=== PATIENT | male | born 1970 | race Caucasian/White ===

== ENCOUNTER 2020-01-23 17:08 | Emergency (ER) | payer OTHER ==
[~2020-01-23] VITALS: Ht 170.2 cm; Wt 98.0 kg
--- NOTE | 2020-01-23 18:43 | PHYS DOC ---
General Adult EDM: Chief Complaint: HYPERGLYCEMIA HPI: HPI: Patient is a 49 year old male who presents with 2 days of nausea, shakiness, cough, shortness of air. He states that all week his blood sugars have been running in the 200s. He states that he takes metformin at 1000mg twice a day. Patient denies chest pain, vomiting, diarrhea, dizziness, headache, excessive thirst, frequent urination, abdominal pain, vision changes, numbness or tingling. He states " I just feel like I have the flu". (CRUZ HAWK APRN) Review of Systems: Review of Systems: Constitutional: Denies fever or chills. + Shaky [] Eyes: Denies change in visual acuity. [] HENT: Denies nasal congestion or sore throat. [] Respiratory: +cough or +shortness of breath. [] Cardiovascular: Denies chest pain or edema. [] GI: Denies abdominal pain. + nausea, denies vomiting, bloody stools or diarrhea. [] : Denies dysuria. [] Musculoskeletal: Denies back pain or joint pain. +Generalized fatigue. [] Integument: Denies rash. [] Neurologic: Denies headache, focal weakness or sensory changes. [] Endocrine: Denies polyuria or polydipsia. [] Lymphatic: Denies swollen glands. [] Psychiatric: Denies depression or anxiety. [] (CRUZ HAWK APRN) Heart Score: Risk Factors: Risk Factors: DM, Current or recent (<one month) smoker, HTN, HLP, family history of CAD, obesity. Risk Scores: Score 0 - 3: 2.5% MACE over next 6 weeks - Discharge Home Score 4 - 6: 20.3% MACE over next 6 weeks - Admit for Clinical Observation Score 7 - 10: 72.7% MACE over next 6 weeks - Early Invasive Strategies (CRUZ HAWK APRN) Current Medications: Current Medications Medications (Trade) Dose Ordered Sig/Selam Start Time Stop Time Status Last Admin Dose Admin Sodium Chloride 1,000 ml @ 1,000 mls/hr Q1H 01/23/20 18:36 01/23/20 19:35 UNV (CRUZ HAWK APRN) Physical Exam: PE: Constitutional: Well developed, well nourished, no acute distress, non-toxic appearance. [] HENT: Normocephalic, atraumatic, bilateral external ears normal, oropharynx moist, no oral exudates, nose normal. [] Eyes: PERRLA, EOMI, conjunctiva normal, no discharge. [] Neck: Normal range of motion, no tenderness, supple, no stridor. [] Cardiovascular:Heart rate regular rhythm, no murmur [] Lungs & Thorax: Bilateral breath sounds clear to auscultation [] Abdomen: Bowel sounds normal, soft, no tenderness, no masses, no pulsatile masses. [] Skin: Warm, dry, no erythema, no rash. [] Back: No tenderness, no CVA tenderness. [] Extremities: No tenderness, no cyanosis, no clubbing, ROM intact, no edema. [] Neurologic: Alert and oriented X 3, normal motor function, normal sensory function, no focal deficits noted. [] Psychologic: Affect normal, judgement normal, mood normal. Normal physical exam [] (CRUZ HAWK APRN) Current Patient Data: Labs: Laboratory Tests Test 01/23/20 18:22 Glucose (Fingerstick) 244 mg/dL (70-99) H (CRUZ HAWK APRN) EKG: EK and read by Dr. Jessica is sinus rhythm and no STEMI [] (CRUZ HAWK APRN) Radiology/Procedures: Radiology/Procedures: [] Impression: [facility] [address] [place] [address] IMAGING REPORT Signed PATIENT: VALERIE SUGGS ACCOUNT: [id number] : 1970 LOCATION: ER AGE: 49 SEX: M EXAM STATUS: REG ER ORD. PHYSICIAN: CRUZ HAWK APRN REASON: soa, cough PROCEDURE: PORTABLE CHEST 1V Exam: Chest one view INDICATION: Short of air, cough TECHNIQUE: Frontal view of the chest Comparisons: None FINDINGS: The cardiomediastinal silhouette and pulmonary vessels are within normal limits. Streaky opacities at the perihilar lungs bilaterally. No pleural effusion. IMPRESSION: Streaky bilateral perihilar opacities, may represent atypical infectious process. Correlate for Covid. Electronically signed by: Maribell Brandt MD (01/23/2020 7:32 PM) [id number] DICTATED and SIGNED BY: MARIBELL BRANDT MD DATE: 01/23/201931 (CRUZ HAWK APRN) Course & Med Decision Making: Course & Med Decision Making Pertinent Labs and Imaging studies reviewed. (See chart for details) COVID-19 CRITERIA: The patient was evaluated during the global COVID-19 pandemic, and that diagnosis was suspected/considered upon their initial presentation. Their evaluation, treatment and testing was consistent with current guidelines for patients who present with complaints or symptoms that may be related to COVID-19. See HPI. Alert and oriented x4. Ambulatory steady gait. No extremity edema. Speaks in full clear sentences. Lungs are clear to all lobes. Afebrile. Abdomen is soft and nontender. Skin pink warm and dry. Patient states a week ago Friday he had a exposure to somebody with COVID. [] (CRUZ HAWK APRN) Dragon Disclaimer: Dragon Disclaimer: This electronic medical record was generated, in whole or in part, using a voice recognition dictation system. (CRUZ HAWK APRN) COVID-19 Patient Risks: Age 65 or older: No Sign of co-morbidity: Yes Exp to person + for COVID: Yes Exp to PUI: No Travel from affected area: No Lower respiratory symptoms: Yes Fever: No Other: Yes (nausea) (CRUZ HAWK APRN) PPE Use: Full PPE with N95 mask or PAPR: Yes (CRUZ HAWK APRN) Departure Departure Impression: Primary Impression: Person under investigation for COVID-19 Additional Impression: Pneumonia Qualified Codes: J18.9 - Pneumonia, unspecified organism Disposition: 01 DC HOME SELF CARE/HOMELESS Condition: STABLE Referrals: AMALIA CAMPBELL MD (PCP) Patient Instructions: Pneumonia, Adult Additional Instructions: Follow-up with primary care provider if needed. Take medication as prescribed and with food. Take Tylenol or ibuprofen for your pain and fever. Drink plenty of fluids. Rest as much as possible. Scripts Azithromycin (AZITHROMYCIN TABLET) 250 Mg Tablet 1 PKG PO UD for 5 Days, #6 TAB 0 Refills 2 the first day followed by 1 for days 2-5 Prov: CRUZ HAWK FORESTRY WORKER 01/23/20 Ondansetron (ONDANSETRON ODT) 4 Mg Tab.rapdis 1 TAB PO PRN Q6-8HRS, #16 TAB Prov: CRUZ HAWK 01/23/20 Methylprednisolone (MEDROL) 4 Mg Tab.ds.pk 1 PKG PO UD, #1 PKG Prov: JAMEYCRUZ KEENAN Ana 01/23/20 Attending Signature Attending Signature I have reviewed the PA/BUSINESS BANK[employer] RELATIONSHIP MANAGER's note and plan of care. I was available for consultation as needed during the patient's visit in the emergency department. I agree with the clinical impression, plan, and disposition. (VALERIE JESSICA DO) CARINEKASSYCRUZDAPHNIE Perez APRN Jan 23, 2020 18:43 VALERIE JESSICA DO Jan 26, 2020 06:56
[2020-01-23 19:20] LABS: BASO # 0.1 x10^3/uL (0.0-0.2); BASO % 1 % (0-3); EOS % 0 % (0-3); HEMOGLOBIN 15.3 g/dL (13.0-17.5); LYMPH # 1.1 x10^3/uL (1.0-4.8); LYMPH % 15 % (24-48); MEAN CORPUSCULAR HEMOGLOBIN 33 pg (25-35); MEAN CORPUSCULAR HGB CONC 36 g/dL (31-37); MEAN CORPUSCULAR VOLUME 92 fL (79-100); MONO # 0.8 x10^3/uL (0.0-1.1); MONO % 11 % (0-9); NEUT # 5.6 x10^3/uL (1.8-7.7); NEUT % 73 % (31-73); PLATELET COUNT 158 x10^3/uL (140-400); RED CELL DISTRIBUTION WIDTH 12.4 % (11.5-14.5); WHITE BLOOD COUNT 7.7 x10^3/uL (4.0-11.0)
[2020-01-23 19:30] LABS: PROTHROMBIN TIME PATIENT 12.7 SEC (11.7-14.0)
[2020-01-23] MEDS ORDERED: IV NORMAL SALINE 1000ML BAG 1,000 ML IV SCH (19:30)
[2020-01-23 19:34] LABS: BILIRUBIN,URINE NEGATIVE (NEG); CLARITY,URINE CLEAR; COLOR,URINE YELLOW; NITRITE,URINE NEGATIVE (NEG); PROTEIN,URINE 30 mg/dL (NEG-TRACE); UROBILINOGEN,URINE 0.2 mg/dL (0.2 mg/dL)
--- NOTE | 2020-01-23 19:35 | RAD ---
Exam: Chest one view INDICATION: Short of air, cough TECHNIQUE: Frontal view of the chest Comparisons: None FINDINGS: The cardiomediastinal silhouette and pulmonary vessels are within normal limits. Streaky opacities at the perihilar lungs bilaterally. No pleural effusion. IMPRESSION: Streaky bilateral perihilar opacities, may represent atypical infectious process. Correlate for Covid. Electronically signed by: Maribell Villareal MD (01/23/2020 7:32 PM) [id number]
[2020-01-23 19:38] LABS: BACTERIA,URINE 0 /HPF (0-FEW); RBC,URINE 0 /HPF (0-2); WBC,URINE 0 /HPF (0-4)
[2020-01-23 19:41] LABS: CALCIUM 8.5 mg/dL (8.5-10.1); GFR 79.4; POTASSIUM 3.8 mmol/L (3.5-5.1)
[2020-01-23 19:46] LABS: ALBUMIN 3.5 g/dL (3.4-5.0); ALBUMIN/GLOBULIN RATIO 0.9 (1.0-1.7); TOTAL BILIRUBIN 0.5 mg/dL (0.2-1.0); TOTAL PROTEIN 7.4 g/dL (6.4-8.2)
[2020-01-23] MEDS ORDERED: METH4TAB2 PO (20:26)
[2020-01-23] MEDS ORDERED: ONDA4TAB12 PO (20:26)
[2020-01-23] MEDS ORDERED: AZIT250T6 PO (20:26)
[2020-01-23] MEDS ORDERED: AZITHRMYCN 500MG IVPB FOR OMNI 250 ML IV ONE (20:30)
[2020-01-23 22:48] VITALS: BP 126/77
--- NOTE | 2020-01-25 10:06 | NUR ---
IP: Attempted to call pt COVID results. No answer. Left voicemail for a return call.
--- NOTE | 2020-01-25 11:20 | NUR ---
IP: Pt returned the call and I informed him of positive COVID test and need to self quarantine for 14 days. Pt verbalized understanding. All questions answered.
== END 2020-01-23 22:56 | disposition home or self-care (01) ==
LOC: ER 17:08
DX: U07.1 COVID-19 (principal); J18.9 Pneumonia, unspecified organism
CPT/HCPCS: 36415; 71045; 80053; 81001; 82962; 84484; 85025; 85610; 96361; 96365; 99285; C9803; J0456; J7030; U0003; 96374